=== PATIENT | female | born 1975 | race Caucasian/White ===

== ENCOUNTER → 2016-04-22 | Outpatient (CLI) | payer OTHER ==
[~2016-04-22] MED LIST: BACL20TA; BACL20TA PO; CATHETER FLUSH 10 ML SYR IV PRN; CEFD300C3; CPR500T PO; HYDR1TAB; HYDR1TAB PO; HYDROCODONE; IBUP-1780; IBUP-1780 PO; IOHEXOL 350 MG/ML 150 ML (OMNIPAQUE 350) VIAL IV ONE; LEVO500T80; NORG1TAB6; NORG1TAB6 PO; NS 100 ML (IVPB) BAG IV ONE; OMEP20CA12; OMEP20CA12 PO; PRD10T PO; RIVA1TAB PO; TRAM50TA2
--- OUTSIDE RECORDS SUMMARY | 2016-04-22 13:56 | XMS REPORT | Continuity of Care Document ---
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 No 03/18/16 3:15am Organ Donor No 03/18/16 3:15am Resuscitation Status Full Code 03/18/16 3:15am Chief Complaint and Reason for Visit Chief Complaint Back Problems Reason for Visit [id number] Thoracic back pain Problems Active Problems Medical Problem Onset Date Status Pulmonary nodules Unknown Acute Right pulmonary embolus Unknown Acute Thoracic back pain Unknown Acute Medications Current Home Medications Medication Dose Units Route Directions Days/Qty Instructions Start Date Omeprazole 20 Mg 20 Mg Oral Daily 10/30/15 Rivaroxaban 1 Each 1 Each Oral As Directed 51 15mg by mouth twice daily x 21 days then 20mg by mouth daily 10/31/15 [Hydrocodone] 03/18/16 Prednisone 10 Mg 10 Mg Oral As Directed 18 3 daily for 3 days, then 2 daily for 3 days, then 1 daily for 3 days 03/18/16 Past Home Medications Medication Directions Ordered Status Acetaminophen/Hydrocodone Bitart 1 Each Tablet, 04/23/09 Discontinued Acetaminophen/Hydrocodone Bitart 1 Each Tablet, 1 Each Oral Q4hr Prn Discontinued Ciprofloxacin 500 Mg Tablet, 1 Tab Oral Twice A Day 04/23/09 Discontinued Tramadol Hcl 50 Mg Tablet, 10/29/15 Discontinued Levofloxacin 500 Mg Tablet, 10/29/15 Discontinued Cefdinir (Omnicef) 300 Mg Capsule, 10/29/15 Discontinued Baclofen 20 Mg Tablet, 10/29/15 Discontinued Ibuprofen 800 Mg Tablet, 10/29/15 Discontinued Norgestimate-Ethinyl Estradiol 1 Each Tablet, 10/29/15 Discontinued Omeprazole 20 Mg Capsule., 10/29/15 Discontinued Norgestimate-Ethinyl Estradiol 1 Each Tablet, 1 Tab Oral Daily 10/30/15 Discontinued Ibuprofen 800 Mg Tablet, 800 Mg Oral Every 8HRS as needed for Pain 10/30/15 Discontinued Baclofen 20 Mg Tablet, 20 Mg Oral Every 8HRS as needed for Muscle Spasms Discontinued Social History Social History Problem Response Recorded Date/Time Alcohol Use Past History 10/29/2015 9:10pm Recreational Drug Use Y PAST METH HISTORY--STATES SHE QUIT IN 2011. NO IV DRUG USE. 10/30/2015 1:34am Recent Foreign Travel No 03/18/2016 3:15am Recent Infectious Disease Exposure No 03/18/2016 3:15am Hospitalization with Isolation Denies 03/18/2016 3:15am Sexually Transmitted Disease No 03/18/2016 3:15am HIV/AIDS No 03/18/2016 3:15am Smoking Status Former Smoker 03/18/2016 3:15am Type Used Cigarettes 03/18/2016 3:15am Recent Hopitalizations No 03/18/2016 3:15am Sexually Transmitted Disease No 03/18/2016 3:15am Hospitalization with Isolation Denies 03/18/2016 3:15am Query Response Start Date Stop Date Smoking Status Former Smoker Hospital Discharge Instructions No hospital discharge instructions. Plan of Care Discharge Date 03/18/16 4:16am Disposition 01 HOME, SELF-CARE Condition at Discharge Stable Instructions/Education Provided Single Pulmonary Nodule Prescriptions See Medication Section Referrals CASE PEREZ DO - Primary Care Physician Additional Instructions/Education Keep your consultation with the job placement specialist. Discussed the potential of extending your MRI imaging through the thoracic spine. You may continue taking hydrocodone as prescribed. Use your steroid taper as prescribed. Exercise, weight loss, and physical therapy may help with your chronic pain as well. You had some nodular lung findings on the CT scan performed in December. Follow- up imaging was recommended within 6 months. Please discuss repeat imaging with your primary care provider. All discharge instructions reviewed with patient and/or family. Voiced understanding. Functional Status No functional status results. Allergies, Adverse Reactions, Alerts No known allergies. Immunizations No immunization records. Vital Signs Acute Vital Signs Vital Response Date/Time Temperature (Fahrenheit) 98.0 degrees F (97.6 - 99.5) 03/18/2016 3:15am Temperature (Calculated Celsius) 36.52804 degrees C (36.4 - 37.5) 03/18/2016 3:15am Temperature Source Temporal 03/18/2016 3:15am Pulse Rate (adult) 72 bpm (60 - 90) 03/18/2016 3:15am Respiratory Rate 16 bpm (12 - 24) 03/18/2016 3:15am Blood Pressure 141/98 mm Hg 03/18/2016 3:15am Blood Pressure Mean 112 mm Hg 03/18/2016 3:15am Pain Numeric Pain Scale 6 03/18/2016 3:15am Height (Feet) 5 feet 03/18/2016 3:15am Height (Inches) 3 inches 03/18/2016 3:15am Height (Calculated Centimeters) 160.905427 cm 03/18/2016 3:15am Weight (Pounds) 215 pounds 03/18/2016 3:15am Weight (Calculated Kilograms) 97.239688 kilograms 03/18/2016 3:15am Capillary Refill Capillary Refill Less Than 3 Seconds 03/18/2016 3:15am Height 5 ft 3 in Weight 215 lb Body Mass Index 38.1 kg/m^2 Results Pending Laboratory Results Test Name Collection Date/Time Procedures No known history of procedures. Encounters Encounter Location Arrival/Admit Date Discharge/Depart Date Attending Provider Departed Emergency Room [facility] 03/18/16 3:13am 03/18 4:16am TANIA GODDARD MD Registered Clinic [facility] 03/03/16 4:26pm CASE PEREZ DO Recent Diagnosis
--- NOTE | 2016-04-22 16:11 | Diagnostic Imaging Report ---
PROCEDURE: CT angiography of the chest with contrast. TECHNIQUE: Multiple contiguous axial images were obtained through the chest after uneventful bolus administration of intravenous contrast. Reconstructed CTA MIP acquisitions were also performed. INDICATION: Pulmonary embolism. COMPARISON: Comparison exam from 10/29/2015 is reviewed. FINDINGS: The pulmonary arteries are well opacified with no filling defects to suggest pulmonary embolism. There is resolution of the previously seen filling defect in the right lower lobe pulmonary artery. The thoracic aorta is normal in caliber. No mediastinal mass or significantly enlarged lymph node is seen. No hilar lymphadenopathy. No axillary lymphadenopathy is seen. No pleural or pericardial effusion. The lungs demonstrate minimal atelectasis or scarring in the right lower lobe with interval resolution of the large consolidation seen in October 2015. No significant consolidation or mass. No suspicious pulmonary nodule is present. The sections in the upper abdomen demonstrate a hypodense lesion measuring 8 mm in the mid left kidney, too small to accurately characterize. The osseous structures appear grossly unremarkable. IMPRESSION: Complete resolution of the previously seen right lower lobe pulmonary artery embolus and right lower lobe consolidation. Minimal right basilar scarring seen. Dictated by: Dictated on workstation # [id number]
== END ==
LOC: RAD 13:52
PROVIDERS: ATTEND Internal Medicine Critical Care Medicine
DX: I26.99 Other pulmonary embolism without acute cor pulmonale (principal)
CPT/HCPCS: 71275

== ENCOUNTER → 2016-07-08 | Outpatient (CLI) | payer OTHER ==
[~2016-07-08] MED LIST changes: -CATHETER FLUSH 10 ML SYR IV PRN; -IOHEXOL 350 MG/ML 150 ML (OMNIPAQUE 350) VIAL IV ONE; -NS 100 ML (IVPB) BAG IV ONE
== END ==
LOC: RAD 11:39
PROVIDERS: ATTEND Nurse Practitioner Family
DX: I26.99 Other pulmonary embolism without acute cor pulmonale (principal); R91.1 Solitary pulmonary nodule

== ENCOUNTER → 2018-09-22 | Outpatient (CLI) | payer OTHER ==
--- NOTE | 2018-09-25 09:55 | Diagnostic Imaging Report ---
Indication: Routine screening. No prior mammograms are available for comparison. This is a baseline study. No spiculated mass or malignant-appearing microcalcifications are seen. Axillae are unremarkable. Impression: BI-RADS category 1 No mammographic features suspicious for malignancy are identified. ACR BI-RADS Category 1: Negative. Result letter will be mailed to the patient. Note: At least 10% of breast cancer is not imaged by mammography. Dictated by: Dictated on workstation # [id number]
== END ==
LOC: RAD 15:23
PROVIDERS: ATTEND Obstetrics & Gynecology
DX: Z12.31 Encounter for screening mammogram for malignant neoplasm of breast (principal)
CPT/HCPCS: 77067

== ENCOUNTER 2019-02-28 08:29 | Outpatient (CLI) | payer OTHER ==
[~2019-02-28] VITALS: Ht 160 cm; Wt 100.0 kg
[~2019-02-28 08:29] MED LIST changes: -OMEP20CA12; -OMEP20CA12 PO; +OMEP20CA13; +OMEP20CA13 PO
[2019-02-28] MEDS ORDERED: SUCR1TAB PO (10:01)
[2019-02-28] MEDS ORDERED: PANT40TA3 PO (10:01)
[2019-03-05] MEDS ORDERED: SUCR1TAB PO (11:15)
== END 2019-02-28 10:05 ==
LOC: PREOP 08:29
PROVIDERS: ATTEND Surgery
DX: Z01.818 Encounter for other preprocedural examination (principal)

== ENCOUNTER → 2019-03-05 | Outpatient (CLI) | payer OTHER ==
[~2019-03-05] MED LIST changes: +PANT40TA3 PO; +SUCR1TAB PO
--- NOTE | 2019-03-05 08:32 | Diagnostic Imaging Report ---
PROCEDURE: US Gallbladder. TECHNIQUE: Multiple real-time grayscale images were obtained over the right upper quadrant in various projections. INDICATION: Abdominal pain COMPARISON: None available FINDINGS: The liver is at the upper limits of normal measuring 18 cm in length. No focal hepatic mass. The gallbladder is unremarkable without evidence of gallstones, gallbladder wall thickening, or pericholecystic fluid. The common bile duct is within normal limits measuring 0.4 cm. The pancreas is not well seen secondary to overlying bowel gas. The right kidney is within normal limits in size. No evidence of hydronephrosis or solid renal mass. No significant free fluid. Negative sonographic Tran sign. IMPRESSION: Borderline hepatomegaly. Otherwise, unremarkable examination. Dictated by: Dictated on workstation # [id number]
== END ==
LOC: RAD 07:37
PROVIDERS: ATTEND Surgery
DX: R16.0 Hepatomegaly, not elsewhere classified (principal); R10.9 Unspecified abdominal pain
CPT/HCPCS: 76705

== ENCOUNTER → 2019-03-23 | Outpatient (CLI) | payer OTHER ==
[~2019-03-23] MED LIST changes: +CATHETER FLUSH 10 ML SYR IV PRN
--- NOTE | 2019-03-23 10:54 | Diagnostic Imaging Report ---
INDICATION: Abdominal pain Hepatobiliary scan with gallbladder ejection 5.15 mCi of technetium 99m Choletec was given intravenously. Patient was given 60 minutes for the ejection fraction. There is homogeneous uptake of isotope throughout the liver. The cystic duct and common duct are both patent. The ejection fraction was calculated at 42%. IMPRESSION: No evidence of biliary obstruction. The gallbladder ejection fraction is 42%. Dictated by: Dictated on workstation # [id number]
== END ==
LOC: CARD 07:47
PROVIDERS: ATTEND Surgery
DX: R10.9 Unspecified abdominal pain (principal)
CPT/HCPCS: 78227